=== PATIENT | female | born 1965 | race Caucasian/White ===

== ENCOUNTER 2017-08-07 15:05 | Observation (INO) ==
[2017-08-07 15:46] LABS: Basophils % 0.4 %; Eosinophils # 0.1 K/mcL (0.0-0.6); Eosinophils % 0.6 %; Hemoglobin 16.2 g/dL (11.5-15.4); Immature Granulocytes % 0.2 % (0-4); Lymphocytes # 2.1 K/mcL (0.6-4.6); Lymphocytes % 25.9 %; Mean Corpuscular HGB Conc 35.2 g/dL (31.6-35.5); Mean Corpuscular Hemoglobin 30.1 pg (28.0-33.3); Mean Corpuscular Volume 85.5 fL (83.0-100.0); Mean Platelet Volume 8.4 fL (9.4-12.4); Monocytes # 0.5 K/mcL (0.0-1.3); Monocytes % 5.4 %; Neutrophils # 5.6 K/mcL (1.6-8.9); Platelet Count 225 K/mcL (140-400); Red Blood Count 5.38 M/mcL (3.82-4.97); Red Cell Distribution Width 12.3 % (11.5-14.5); Segmented Neutrophils % 67.5 %
[2017-08-07 15:57] LABS: BUN/Creatinine Ratio 13 (6-26); Blood Urea Nitrogen 12 mg/dL (7-20); Calcium 9.4 mg/dL (8.6-10.8); Carbon Dioxide 26 mEq/L (19-29); Chloride 105 mEq/L (98-109); Glucose 102 mg/dL (70-99); Osmolality,Calculated 288 (280-300); Potassium 3.6 mEq/L (3.5-4.5); Sodium 139 mEq/L (136-145); eGFR For African Americans > 60 (> 60); eGFR For Non-African Americans > 60 (> 60)
--- NOTE | 2017-08-07 16:21 | Emergency Department Note ---
Disposition Clinical Impression: Chest pain Disposition: Admitted As Inpatient Condition: Good General Adult HPI - General Chief complaint: ED Chest Pain Stated complaint: CP Time Seen by Provider: 08/07/17 16:14 Source: patient Limitations: no limitations - History of Present Illness Pain Scale: 6 - Related Data Home Medications Medication Instructions Recorded Confirmed Acetaminophen [Tylenol] 325 mg PO Q6HR PRN 08/07/17 08/07/17 Nitroglycerin [Nitrostat] 0.4 mg SL Q5M PRN 08/07/17 08/07/17 Allergies Allergy/AdvReac Type Severity Reaction Status Date / Time aspirin AdvReac Hives Verified 08/07/17 15:12 Penicillins [PCN] AdvReac Hives Verified 08/07/17 15:12 tb skin test AdvReac Hives Uncoded 08/07/17 15:12 Past Medical History - Past Medical History Medical history: Reports: asthma Surgical history: Reports: appendectomy, hysterectomy, orthopedic, other Psychiatric history: Reports: no psych history 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 - Social History Smoking Status: Current every day smoker Smokeless Tobacco Status: No Alcohol use: Reports: none Drug use: Reports: none Physical Exam - General Limitations: no limitations General appearance: alert, in no apparent distress Course Vital Signs Temperature 97.7 F 08/07/17 15:08 Pulse Rate 84 08/07/17 15:08 Respiratory Rate 18 08/07/17 15:08 Blood Pressure 155/90 08/07/17 15:08 O2 Sat by Pulse Oximetry 96 08/07/17 15:08 Temperature 97.4 F L 08/08/17 10:21 Pulse Rate 68 08/08/17 10:21 Respiratory Rate 18 08/08/17 10:21 Blood Pressure 144/85 08/08/17 10:21 O2 Sat by Pulse Oximetry 98 08/08/17 10:21 Oxygen Delivery Oxygen Delivery Room Air Medical Decision Making - Lab Data Result diagrams: 08/07/17 15:31 08/08/17 03:07 Lab Results 08/07/17 08/07/17 08/07/17 Range/Units 15:31 15:31 15:31 WBC 8.3 (4.3-11.1) K/mcL RBC 5.38 H (3.82-4.97) M/mcL Hgb 16.2 H (11.5-15.4) g/dL Hct 46.0 H (35.3-44.9) % MCV 85.5 (83.0-100.0) fL MCH 30.1 (28.0-33.3) pg MCHC 35.2 (31.6-35.5) g/dL RDW 12.3 (11.5-14.5) % Plt Count 225 (140-400) K/mcL MPV 8.4 L (9.4-12.4) fL Immature Gran % 0.2 (0-4) % Seg Neutrophils % 67.5 % Lymphocytes % 25.9 % Monocytes % 5.4 % Eosinophils % 0.6 % Basophils % 0.4 % Neutrophils # 5.6 (1.6-8.9) K/mcL Lymphocytes # 2.1 (0.6-4.6) K/mcL Monocytes # 0.5 (0.0-1.3) K/mcL Eosinophils # 0.1 (0.0-0.6) K/mcL Basophils # 0.0 (0.0-0.2) K/mcL Sodium 139 (136-145) mEq/L Potassium 3.6 (3.5-4.5) mEq/L Chloride 105 (98-109) mEq/L Carbon Dioxide 26 (19-29) mEq/L BUN 12 (7-20) mg/dL Creatinine 0.92 (0.57-1.11) mg/dL Est GFR ( Amer) > 60 (> 60) Est GFR (Non-Af Amer) > 60 (> 60) BUN/Creatinine Ratio 13 (6-26) Glucose 102 H (70-99) mg/dL Calculated Osmolality 288 (280-300) Lactic Acid 1.1 (0.5-2.2) mmol/L Calcium 9.4 (8.6-10.8) mg/dL Troponin I (0-0.03) ng/mL B-Natriuretic Peptide (0-100) pg/mL 08/07/17 08/07/17 Range/Units 15:31 15:31 WBC (4.3-11.1) K/mcL RBC (3.82-4.97) M/mcL Hgb (11.5-15.4) g/dL Hct (35.3-44.9) % MCV (83.0-100.0) fL MCH (28.0-33.3) pg MCHC (31.6-35.5) g/dL RDW (11.5-14.5) % Plt Count (140-400) K/mcL MPV (9.4-12.4) fL Immature Gran % (0-4) % Seg Neutrophils % % Lymphocytes % % Monocytes % % Eosinophils % % Basophils % % Neutrophils # (1.6-8.9) K/mcL Lymphocytes # (0.6-4.6) K/mcL Monocytes # (0.0-1.3) K/mcL Eosinophils # (0.0-0.6) K/mcL Basophils # (0.0-0.2) K/mcL Sodium (136-145) mEq/L Potassium (3.5-4.5) mEq/L Chloride (98-109) mEq/L Carbon Dioxide (19-29) mEq/L BUN (7-20) mg/dL Creatinine (0.57-1.11) mg/dL Est GFR ( Amer) (> 60) Est GFR (Non-Af Amer) (> 60) BUN/Creatinine Ratio (6-26) Glucose (70-99) mg/dL Calculated Osmolality (280-300) Lactic Acid (0.5-2.2) mmol/L Calcium (8.6-10.8) mg/dL Troponin I 0.00 (0-0.03) ng/mL B-Natriuretic Peptide < 10 (0-100) pg/mL Attestation Statement - Attestation Attestation: I examined this patient and my medical decision-making was reviewed with the Resident Physician. I agree with the documented findings, disposition and treatment plan as described except to the extent set forth below. [id number] time provided Patient complains of chest discomfort. She appears in no acute distress on exam. EKG reviewed by me and compared to previous
--- NOTE | 2017-08-07 16:24 | Emergency Department Note ---
Disposition Clinical Impression: Chest pain Qualifiers: Chest pain type: other chest pain Qualified Code(s): R07.89 - Other chest pain ; R07.8 - Other chest pain Disposition: Admitted As Inpatient Condition: Good Referrals: Jim Chiang DO [Primary Care Provider] - Forms: ED Satisfaction Letter Time of Disposition: 17:00 General Adult HPI - General Chief complaint: ED Chest Pain Stated complaint: CP Time Seen by Provider: 08/07/17 16:14 Source: patient Limitations: no limitations Nursing Notes Reviewed: Yes Vital Signs Reviewed: Yes - History of Present Illness HPI Narrative: 52-year-old female presenting to the emergency Department chief complaint chest pain. Patient was worked up at [facility] earlier this week for chest pain rule out. She was admitted but did not receive a stressor. She received cardiac enzyme repeat testing which was within normal limits. Patient was discharged with nitroglycerin and then outpatient follow-up with cardiology for a stress test. Patient states she is still having chest pain. It radiates down her left arm. She feels that she is having hot flashes. She denies nausea or vomiting. She has not passed out. Denies shortness of breath. States she spoke with her primary care physician who told her to come to edema ER because she would get admitted and have an inpatient stress test which would be faster than her appointment on the for her outpatient stress test. Pain Scale: 6 - Related Data Previous Rx's Medication Instructions Recorded Cyclobenzaprine [Flexeril] 10 mg PO BID #14 tablet 07/07/15 predniSONE [Prednisone] 20 mg PO BID #8 tablet 07/07/15 Ibuprofen [Motrin] 600 mg PO Q6HR PRN #24 tab 04/12/17 Tramadol HCl [Ultram] 50 mg PO TID PRN #15 tab 04/12/17 Allergies Allergy/AdvReac Type Severity Reaction Status Date / Time aspirin AdvReac Hives Verified 08/07/17 15:12 Penicillins [PCN] AdvReac Hives Verified 08/07/17 15:12 tb skin test AdvReac Hives Uncoded 08/07/17 15:12 All systems ED: reviewed and negative except as stated. Constitutional: Denies: fever, chills, weakness Eyes: Reports: as per HPI ENT ED: Reports: as per HPI Cardiovascular: Reports: chest pain. Denies: palpitations, dyspnea on exertion Respiratory: Denies: cough, dyspnea, wheezes Gastrointestinal: Denies: abdominal pain, nausea, vomiting Genitourinary: Reports: as per HPI Musculoskeletal: Reports: as per HPI Integumentary: Reports: as per HPI Neurological: Denies: weakness, numbness, paresthesias Psychiatric: Reports: as per HPI Endocrine: Reports: as per HPI Hematological/Lymphatic: Reports: as per HPI Allergic/Immunologic: Reports: as per HPI Past Medical History - Past Medical History Attestation: Yes The following information was validated with the patient. 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 Absent : tenderness, rash - Respiratory Respiratory exam: Present: normal lung sounds bilaterally. Absent: respiratory distress, wheezes - Cardiovascular Cardiovascular exam: Present: regular rate, normal rhythm, normal heart sounds - Abdominal Exam Abdominal exam: Present: soft, Non-Tender. Absent: distention, guarding, rebound - Extremities Exam Extremities exam: Present: normal inspection, full ROM - Neurological Exam Neurological exam: Present: alert, oriented X3 - Psychiatric Psychiatric exam: Present: normal affect, normal mood - Skin Skin exam: Present: warm, intact Course Course Narrative: 52-year-old female presenting to the emergency Department chief complaint of chest pain. Patient has not had a stress test or catheterization in the past. Her heart score is greater than 3. Triage labs and chest x-ray were completed. These are all within normal limits. We will admit the patient at this time for chest pain rule out. Patient is alert and oriented 3 in the room with stable vital signs at this time. - Reevaluation(s) Reevaluation #1: Selene Hardy accepts the patient Time: 17:00 Vital Signs Temperature 97.7 F 08/07/17 15:08 Pulse Rate 84 08/07/17 15:08 Respiratory Rate 18 08/07/17 15:08 Blood Pressure 155/90 08/07/17 15:08 O2 Sat by Pulse Oximetry 96 08/07/17 15:08 Temperature 97.7 F 08/07/17 15:08 Pulse Rate 67 08/07/17 16:30 Respiratory Rate 18 08/07/17 16:30 Blood Pressure 127/84 08/07/17 16:30 O2 Sat by Pulse Oximetry 96 08/07/17 16:30 Oxygen Delivery Oxygen Delivery Room Air Medical Decision Making - Lab Data Result diagrams: 08/07/17 15:31 08/07/17 15:31 Lab Results 08/07/17 08/07/17 08/07/17 Range/Units 15:31 15:31 15:31 WBC 8.3 (4.3-11.1) K/mcL RBC 5.38 H (3.82-4.97) M/mcL Hgb 16.2 H (11.5-15.4) g/dL Hct 46.0 H (35.3-44.9) % MCV 85.5 (83.0-100.0) fL MCH 30.1 (28.0-33.3) pg MCHC 35.2 (31.6-35.5) g/dL RDW 12.3 (11.5-14.5) % Plt Count 225 (140-400) K/mcL MPV 8.4 L (9.4-12.4) fL Immature Gran % 0.2 (0-4) % Seg Neutrophils % 67.5 % Lymphocytes % 25.9 % Monocytes % 5.4 % Eosinophils % 0.6 % Basophils % 0.4 % Neutrophils # 5.6 (1.6-8.9) K/mcL Lymphocytes # 2.1 (0.6-4.6) K/mcL Monocytes # 0.5 (0.0-1.3) K/mcL Eosinophils # 0.1 (0.0-0.6) K/mcL Basophils # 0.0 (0.0-0.2) K/mcL Sodium 139 (136-145) mEq/L Potassium 3.6 (3.5-4.5) mEq/L Chloride 105 (98-109) mEq/L Carbon Dioxide 26 (19-29) mEq/L BUN 12 (7-20) mg/dL Creatinine 0.92 (0.57-1.11) mg/dL Est GFR ( Amer) > 60 (> 60) Est GFR (Non-Af Amer) > 60 (> 60) BUN/Creatinine Ratio 13 (6-26) Glucose 102 H (70-99) mg/dL Calculated Osmolality 288 (280-300) Lactic Acid 1.1 (0.5-2.2) mmol/L Calcium 9.4 (8.6-10.8) mg/dL Troponin I (0-0.03) ng/mL B-Natriuretic Peptide (0-100) pg/mL 08/07/17 08/07/17 Range/Units 15:31 15:31 WBC (4.3-11.1) K/mcL RBC (3.82-4.97) M/mcL Hgb (11.5-15.4) g/dL Hct (35.3-44.9) % MCV (83.0-100.0) fL MCH (28.0-33.3) pg MCHC (31.6-35.5) g/dL RDW (11.5-14.5) % Plt Count (140-400) K/mcL MPV (9.4-12.4) fL Immature Gran % (0-4) % Seg Neutrophils % % Lymphocytes % % Monocytes % % Eosinophils % % Basophils % % Neutrophils # (1.6-8.9) K/mcL Lymphocytes # (0.6-4.6) K/mcL Monocytes # (0.0-1.3) K/mcL Eosinophils # (0.0-0.6) K/mcL Basophils # (0.0-0.2) K/mcL Sodium (136-145) mEq/L Potassium (3.5-4.5) mEq/L Chloride (98-109) mEq/L Carbon Dioxide (19-29) mEq/L BUN (7-20) mg/dL Creatinine (0.57-1.11) mg/dL Est GFR ( Amer) (> 60) Est GFR (Non-Af Amer) (> 60) BUN/Creatinine Ratio (6-26) Glucose (70-99) mg/dL Calculated Osmolality (280-300) Lactic Acid (0.5-2.2) mmol/L Calcium (8.6-10.8) mg/dL Troponin I 0.00 (0-0.03) ng/mL B-Natriuretic Peptide < 10 (0-100) pg/mL - EKG Data EKG #1 EKG attestation: Yes I reviewed and interpreted this EKG. EKG results narrative: Sinus rhythm. 74 bpm. Normal axis. AR interval 151, QRS 84, QTC 393. Nonspecific T-wave abnormalities noted in lead 3 and V1. No signs of ST segment elevation. When compared to previous EKG completed on 06/07/2011 shows new findings of nonspecific T-wave abnormality.
[2017-08-07] MEDS ORDERED: Ondansetron 4 MG/2 ML VIAL IVP PRN (20:26)
[2017-08-07] MEDS ORDERED: Naloxone 0.4 MG/ML INJ IVP PRN (20:26)
[2017-08-07] MEDS ORDERED: Nitroglycerin 0.4 MG TAB.SUBL SL PRN (20:28)
--- NOTE | 2017-08-07 20:30 | Internal Med History&Physical ---
Date of Encounter: 08/07/17 Time of Encounter: 20:30 Assessment and Plan (1) Chest pain Current visit: Yes Status: Acute Patient has no prior history of CAD and presents with atypical chest pain, she has significant risk factors with CAD; obesity, active smoker, for which reason it will be reasonable to order a stress test for ACS rule out in AM, her admission EKG was non ischemic, troponin was unremarkable will cycle troponin, check lipid profile and A1c for risk stratification, telemetry monitoring, for nuclear stress test, Qualifiers: Chest pain type: intercostal pain Qualified Code(s): R07.82 - Intercostal pain Internal Medicine - H&P: HPI Chief complaint: Chest pain Admitted From: Emergency Dept Plans for Post Hospital Care: Home History of present illness: Ms. Rider is a 52 year old female with a history of multiple comorbidities who presents with chest pain. She reports that last night she had an episode of chest pain that lasted for 30 to 45 minutes, it was as if "a ton of bricks was on" her chest. It was located on the left, 4-5/10 in severity, radiated down her left arm, shoulder and in between her shoulder blades. The pain went away and came again this morning around 9 AM with similar description. It was incompetent and timing, improved slightly with 3 nitroglycerin sublingual tablets, had no aggravating factors. She reports associated diaphoresis, lightheadedness, dyspnea, feeling of apprehension, and palpitations. She denies associated nausea or vomiting. Of note she reports that she was seen in the ER of [facility] on Thursday with similar complaints and was admitted overnight and had telemetry monitoring and as well as troponin cycling and she was supposed to be scheduled for outpatient stress test. On Thursday she found out that the stress test had been scheduled for August 28 so when she had chest pain this time around she decided to come to the ER of [facility] for further evaluation and management. She denies cough, fever, chills, change in bowel or urinary habits. 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 Family history mother is she had diabetes mellitus, hypertension, kidney disease. Sri has asthma, youngest son has kidney problems, a brother of [place] in his 50s Past Med Surg Social Fam HX - Past Medical History Source: patient, old records reviewed Medical history: asthma Psychiatric history: no psych history - Past Surgical History Surgical History: appendectomy, hysterectomy, orthopedic, other - Social History Smoking Status: Current every day smoker Smokeless Tobacco Status: No Alcohol use: none Drug use: none - Family History Mother Hx Family Cardiac Disorders: Yes Hx Family Respiratory Disorders: Yes Internal Medicine - H&P: Meds Acetaminophen [Tylenol] 325 mg PO Q6HR PRN 08/07/17 [History] Nitroglycerin [Nitrostat] 0.4 mg SL Q5M PRN 08/07/17 [History] 3 Allergy/AdvReac Type Severity Reaction Status Date / Time aspirin AdvReac Hives Verified 08/07/17 15:12 Penicillins [PCN] AdvReac Hives Verified 08/07/17 15:12 tb skin test AdvReac Hives Uncoded 08/07/17 15:12 All Systems PM: A 10-system review of systems was performed and is negative for pertinent findings except as documented above in the HPI. - Constitutional Vitals: Temp Pulse Resp BP Pulse Ox 97.4 F L 60 16 116/74 96 08/07/17 19:37 08/07/17 19:37 08/07/17 19:37 08/07/17 19:37 08/07/17 19:37 GENERAL: Adult female, obese appearing, lying in bed, Alert, not in obvious pain or distress HEENT: NC/AT, EOMI, PERRLA, anicteric sclera, normal conjunctiva, supple, clear nares, moist mucous membranes, RESP: Lungs are clear to auscultation bilaterally, with good AE, no crackles or wheeze CARDIO: Normal heart sounds with RRR, no murmurs, no JVD, no ankle edema GI: Soft, full, no tenderness, no organomegaly felt, normal bowel sounds heard MUSCULOSKELETAL: Grossly normal movements bilaterally, no deformities noted, NEUROLOGIC: CN 2-12 intact grossly. No gross motor/sensory deficit appreciated, PSYCHIATRY: AAO x 3. Mood is fair SKIN: no skin rash or ulcers noted Internal Med - H&P Results - Labs CBC & Chem 7: 08/07/17 15:31 08/08/17 03:07 - EKG Data -: EKG Interpreted by Myself - Diagnostic Studies Chest x-ray Status: image reviewed by me
[2017-08-07] MEDS: Acetaminophen 325 MG TABLET PO PRN (21:56)
[2017-08-08 04:22] LABS: Hemoglobin A1C 5.2 %
[2017-08-08 04:26] LABS: BUN/Creatinine Ratio 18 (6-26); Blood Urea Nitrogen 14 mg/dL (7-20); Calcium 9.2 mg/dL (8.6-10.8); Carbon Dioxide 24 mEq/L (19-29); Chloride 108 mEq/L (98-109); Chol/HDL Ratio 6.1 (0-4.9); Cholesterol 208 mg/dL (< 200); Glucose 93 mg/dL (70-99); HDL Cholesterol 34 mg/dL (40-59); Magnesium 1.9 mg/dL (1.6-2.6); Osmolality,Calculated 290 (280-300); Phosphorous 3.2 mg/dL (2.3-4.7); Potassium 3.5 mEq/L (3.5-4.5); Sodium 140 mEq/L (136-145); Triglycerides 405 mg/dL (< 150); eGFR For African Americans > 60 (> 60); eGFR For Non-African Americans > 60 (> 60)
[2017-08-08] MEDS ORDERED: Regadenoson 0.4 MG/5 ML SYRINGE IVP ONE (06:24)
[2017-08-08] MEDS: *HR* Heparin 5,000 UNIT/ML VIAL SQ SCH ×3 (12:09→19:44)
--- NOTE | 2017-08-08 12:09 | Internal Med Progress Note ---
Date of Encounter: 08/08/17 Time of Encounter: 11:35 - Assessment and plan (1) Chest pain Current Visit: Yes Status: Acute Assessment and plan: Patient has no prior history of CAD and presents with atypical chest pain, she has significant risk factors with CAD; obesity, active smoker, as well as hyperlipidemia. Her admission EKG was non ischemic. Troponin negative x 3. A1c 5.2. Pt with elevated cholesterol and triglycerides and has been placed on a statin. Stress test was not completed today due to IV infiltrating, will finish tomorrow. Pt denies chest pain now. S1 and S2 heard, RRR. No gallops, clicks, murmurs. Pain is not reproducible with palpation, movement, or deep inspiration. Nicotine patch ordered, pt is aware that it needs to be removed by midnight. Family states that "Mountain Dew is her life". We have discussed no caffeine. Pt and family verbalized understanding. Continue telemetry Continue ASA and statin Stress test completed tomorrow. Qualifiers: Chest pain type: intercostal pain Qualified Code(s): R07.82 - Intercostal pain (2) Tobacco abuse Current Visit: Yes Status: Chronic Assessment and plan: Pt smokes, nicotine patch ordered. Will attempt to discuss smoking cessation with pt when is not at bedside. (3) Hyperlipidemia Current Visit: Yes Status: Acute Assessment and plan: Acute. New diagnosis. Pt has been started on Lipitor 40mg po daily. continue medication at home. Qualifiers: Hyperlipidemia type: unspecified Qualified Code(s): E78.5 - Hyperlipidemia , unspecified (4) DVT prophylaxis Current Visit: Yes Status: Acute Assessment and plan: Heparin SQ - Time Spent With Patient less than 15 minutes - Subjective Interval history: Pt was seen and assessed at 1135. Family x 2 at bs. Questions answered. Pt denies chest pain currently. Denies n/v/d, diaphoresis, headache, vision changes , abd pain. Pt will finish stress test tomorrow and has requested a nicotine patch. - Constitutional Vitals: Temp Pulse Resp BP Pulse Ox 97.4 F L 68 18 144/85 98 08/08/17 10:21 08/08/17 10:21 08/08/17 10:21 08/08/17 10:21 08/08/17 10:21 General appearance: Present: A&O X 3, pleasant, no acute distress, answers questions appropriately - Head Head exam: Present: atraumatic, normal inspection, normocephalic - Eye Eye exam: Present: normal appearance, conjuntiva pink, sclera anicteric - Neck Neck exam general surgery: Present: normal inspection, supple, trachea midline. Absent: lymphadenopathy, tenderness - Respiratory Respiratory exam: Present: CTAB. Absent: accessory muscle use, chest wall tenderness, rales, respiratory distress, rhonchi, wheezes - Cardiovascular Cardiovascular exam: Present: RRR, +S1, +S2. Absent: diastolic murmur, gallop, rubs, systolic murmur - GI/Abdominal GI/Abdominal exam: Present: normal bowel sounds, soft. Absent: distended, hepatomegaly, tenderness - Extremities Exam Extremities exam: Present: warm, radial pulses palpable and symmetrical. Absent : calf tenderness, cyanotic, pedal edema - Neurological Exam Neurological exam: Present: alert, oriented X3, no focal deficits. Absent: facial droop, speech deficit - Skin Skin exam: Present: dry, intact, normal color, warm. Absent: rash Internal Medicine: Result - Labs CBC & Chem 7: 08/07/17 15:31 08/08/17 03:07 Labs: BMP 08/08/17 03:07 Sodium 140 Potassium 3.5 Chloride 108 Carbon Dioxide 24 BUN 14 Creatinine 0.80 Glucose 93 Calcium 9.2 Cardiac Enzymes 08/07/17 08/08/17 Range/Units 20:42 03:07 Troponin I 0.00 0.00 (0-0.03) ng/mL Consult Discharge Plan - Plan Referrals: Jim Chiang DO [Primary Care Provider] -
[2017-08-08] MEDS: Nicotine 14 MG PATCH.TD24 TD SCH (17:12)
[2017-08-09 02:53] VITALS: BP 124/79
[2017-08-09 05:33] LABS: Basophils % 0.3 %; Eosinophils # 0.1 K/mcL (0.0-0.6); Eosinophils % 0.7 %; Hematocrit 42.5 % (35.3-44.9); Hemoglobin 14.8 g/dL (11.5-15.4); Immature Granulocytes % 0.3 % (0-4); Lymphocytes % 28.7 %; Mean Corpuscular HGB Conc 34.8 g/dL (31.6-35.5); Mean Corpuscular Hemoglobin 29.8 pg (28.0-33.3); Mean Corpuscular Volume 85.7 fL (83.0-100.0); Mean Platelet Volume 8.7 fL (9.4-12.4); Monocytes # 0.5 K/mcL (0.0-1.3); Monocytes % 6.6 %; Neutrophils # 4.4 K/mcL (1.6-8.9); Platelet Count 215 K/mcL (140-400); Red Blood Count 4.96 M/mcL (3.82-4.97); Red Cell Distribution Width 12.4 % (11.5-14.5); Segmented Neutrophils % 63.4 %
[2017-08-09] MEDS: *HR* Heparin 5,000 UNIT/ML VIAL SQ SCH (05:33)
[2017-08-09 05:59] LABS: BUN/Creatinine Ratio 15 (6-26); Blood Urea Nitrogen 13 mg/dL (7-20); Carbon Dioxide 25 mEq/L (19-29); Chloride 110 mEq/L (98-109); Glucose 110 mg/dL (70-99); Osmolality,Calculated 295 (280-300); Potassium 3.8 mEq/L (3.5-4.5); Sodium 142 mEq/L (136-145); eGFR For African Americans > 60 (> 60); eGFR For Non-African Americans > 60 (> 60)
[2017-08-09] MEDS ORDERED: Regadenoson 0.4 MG/5 ML SYRINGE IVP ONE (06:01)
[2017-08-09] MEDS: Nicotine 14 MG PATCH.TD24 TD SCH (09:07)
[2017-08-09] MEDS: Acetaminophen 325 MG TABLET PO PRN (09:11)
--- NOTE | 2017-08-09 11:15 | Discharge Summary ---
Date of Encounter: 08/09/17 Time of Encounter: 09:20 - Discharge Diagnosis (1) Chest pain Priority: Primary Status: Acute Comments: Patient has no prior history of CAD and presents with atypical chest pain, she has significant risk factors with CAD; obesity, active smoker, as well as hyperlipidemia. Pt reports symptoms of left chest pain/pressure on her chest, lasting approximately 30-45 minutes. + radiation down left arm, shoulder and into back. Resolved on it's own and began again morning of admission with same features. Improved somewhat with 3 NTG sl. She reports diaphroesis, lightheadedness, dyspnea, denies n/v. Her admission EKG was non ischemic. Troponin negative x 3. A1c 5.2. Pt with elevated cholesterol and triglycerides and has been placed on a statin. Stress test the small size, mild to moderate intensity, fixed apical septal apex defect. Wall motion is normal. Findings were consistent with artifact. Perfusion imaging was negative for ischemia or infarct. Stress ECG was negative for ischemia at level of heart rate achieved. Pt denies chest pain now. S1 and S2 heard, RRR. No gallops, clicks, murmurs. Pain is not reproducible with palpation, movement, or deep inspiration. She has been pain free since arrival. Unclear etiology of chest pain. Patient denies pain being reproducible, she denies abdominal pain or GERD symptoms, abdomen is nontender to palpation. She denies any recent stress. Patient does drink a large amount of Mountain Dew a day, as well as smoking. She does lead a sedentary lifestyle. We discussed multiple modifiable risk factors. I will send patient home with nicotine patches. does not seem to be especially supportive in any of the patient's attempts to discuss behavior or lifestyle modifications. Qualifiers: Chest pain type: intercostal pain Qualified Code(s): R07.82 - Intercostal pain (2) Tobacco abuse Priority: Secondary Status: Chronic Comments: Patient is willing to take a prescription for patches home with her. She initially said that she did not want to stop smoking. We discussed her modifiable risk factors and she agreed. does not seem especially supportive. (3) Hyperlipidemia Priority: Secondary Status: Acute Comments: New diagnosis. Patient will be sent home with a prescription for a statin. She will need to follow-up with primary care for continued evaluation and medication refills. Qualifiers: Hyperlipidemia type: unspecified Qualified Code(s): E78.5 - Hyperlipidemia , unspecified (4) DVT prophylaxis Priority: Secondary Status: Acute Comments: Heparin subcutaneous daily. Patient is ambulatory. - Discharge Medications Prescriptions: Aspirin Enteric Coated [Aspirin EC] 81 mg PO DAILY #30 tablet. Atorvastatin [Lipitor] 40 mg PO HS #30 tablet Nicotine Patch [Nicoderm] 14 mg TD DAILY #30 patch.td24 Home Medications: Acetaminophen [Tylenol] 325 mg PO Q6HR PRN 08/07/17 [History] Nitroglycerin [Nitrostat] 0.4 mg SL Q5M PRN 08/07/17 [History] Aspirin Enteric Coated [Aspirin EC] 81 mg PO DAILY #30 tablet. 08/09/17 [Rx] Atorvastatin [Lipitor] 40 mg PO HS #30 tablet 08/09/17 [Rx] Nicotine Patch [Nicoderm] 14 mg TD DAILY #30 patch.td24 08/09/17 [Rx] Allergies/Adverse Reactions: 3 Allergy/AdvReac Type Severity Reaction Status Date / Time aspirin AdvReac Hives Verified 08/07/17 15:12 Penicillins [PCN] AdvReac Hives Verified 08/07/17 15:12 tb skin test AdvReac Hives Uncoded 08/07/17 15:12 Procedures/tests Complete & Pending: Procedures Performed prior 72 hours Category Date Time Status NM marisol perf SPECT multi [NM] Routine Exams 08/07/17 20:28 Taken SP pharm nuclear stress Routine Y 08/09/17 20:27 Completed Date of admission: 08/07/17 17:07 Primary care physician: Jim Chiang Discharging clinician: Savanna Louie Anticipated date of discharge: 08/09/17 - Patient Status Disposition: Home, Self-Care Functional capacity at discharge: independent ambulation Overall status at discharge: patient is back to baseline - Discharge Instructions Follow Up With: Jim Chiang DO [Primary Care Provider] - Additional Instructions: Follow up with your PCP in the next 7-10 days for a recheck Continue your home medications and start your new medications tomorrow. Return to the ER as needed for any other problems or concerns or if you have any other problems or concerns. Resume your normal activities as tolerated. - Diet and Activity Activity: increase activity as tolerated Diet: advance to your usual diet Interval History: Please see assessment and plan for hospital course. Hospital course: Ms. Rider is a 52 year old female - Time Spent with Patient Total time spent providing and/or coordinating discharge services: Less than 30 minutes - Constitutional Vitals: Temp Pulse Resp BP Pulse Ox 97.6 F 67 17 124/79 91 08/09/17 02:50 08/09/17 02:50 08/09/17 02:50 08/09/17 02:50 08/09/17 02:50 General appearance: Present: A&O X 3, pleasant, no acute distress, answers questions appropriately - Head Head exam: Present: atraumatic, normal inspection, normocephalic - Eye Eye exam: Present: normal appearance, conjuntiva pink, sclera anicteric - Neck Neck exam general surgery: Present: supple, trachea midline. Absent: lymphadenopathy, tenderness - Respiratory Respiratory exam: Present: CTAB. Absent: accessory muscle use, chest wall tenderness, rales, respiratory distress, rhonchi, wheezes - Cardiovascular Cardiovascular exam: Present: RRR, +S1, +S2. Absent: diastolic murmur, gallop, rubs, systolic murmur - GI/Abdominal GI/Abdominal exam: Present: normal bowel sounds, soft. Absent: distended, hepatomegaly, tenderness - Extremities Exam Extremities exam: Present: normal capillary refill, warm, radial pulses palpable and symmetrical. Absent: calf tenderness, cyanotic, pedal edema, tenderness - Neurological Exam Neurological exam: Present: alert, oriented X3, no focal deficits. Absent: facial droop, speech deficit - Skin Skin exam: Present: dry, intact, normal color, warm. Absent: rash
--- NOTE | 2017-08-13 09:43 | Electrocardiograph Report ---
[place] [id number] Test Date: 2017-08-07 Pat Name: Eduarda Rider Department: 104 Room: 3B41 Gender: F Doctor Of Chiropractic: QUYEN : 1965 Requested By: Sana See Order Number: [id number] Reading MD: Caro Tavera Measurements Intervals [place] Rate: 74 P: 60 MD: 151 QRS: 29 QRSD: 84 T: 7 QT: 366 QTc: 393 Interpretive Statements SINUS RHYTHM POSSIBLE LEFT ATRIAL ENLARGEMENT [-0.1mV P WAVE IN V1/V2] NONSPECIFIC ST & T-WAVE ABNORMALITY Electronically Signed On 08-13-2017 9:41:55 EDT by Caro Tavera
== END 2017-08-09 12:20 | disposition home or self-care (01) ==
LOC: 3BNU 15:05 → EMEROO 15:05 → 3BNU 18:06
PROVIDERS: ADMIT Internal Medicine; ATTEND Registered Nurse